=== PATIENT | female | born 1945 | race Caucasian/White ===

== ENCOUNTER → 2016-11-14 | Outpatient (CLI) | payer MEDICARE, OTHER ==
[~2016-11-14] MED LIST: ASPI325T6 PO; ASPIRIN 32325 MG/TAB PO; BETIMOL 2.5 ML2.5 M1 OP; CALCIUM + D 6001 TA1 PO; CALTRATE 600 +1 TAB PO; CELEBREX 200MG200 MG PO; COLACE 100100 MG/CAP PO; FLOVENT DI100 MCG/Ac IH; FOLIC ACID 40400 MCG PO; FUROSEMIDE40 MG PO; GLUCOPHAGE500 MG/TAB PO; IRON325 M1 PO; LABETALOL200 MG PO; LASIX 40MG TABL40 MG PO; LEVAQUIN 5500 MG/TA1 PO; LEVOTHYROXINE0.2 MG PO; LOVENOX 4040 MG/0.4 SQ; MOBIC 7.5MG7.5 MG PO; NEXIUM 40MG40 MG PEG; NORCO 325 MG-51 TAB PO; NORCO 325 MG-7.1 TAB PO; NORMODYNE200 MG PO; OXECTA5 MG PO; PREDNISONE 5MG5 MG PO; ROXICODONE 55 MG/TAB PO; SENOKOT S 50 MG1 TAB PO; SYNTHROID0.2 MG/TAB PO; TIMOPTIC 0.25%-10 OP; TYLENOL 500MG500 MG PO; ULTRAM 50MG TAB50 MG PO; VITAMIN C500 MG PO; VYTORIN 10 MG-41 TAB PO; ZOFRAN 4MG T4 MG/TAB PO
== END ==
LOC: MC.RAD 15:00
DX: Z12.31 Encounter for screening mammogram for malignant neoplasm of breast (principal); N63 Unspecified lump in breast; R92.1 Mammographic calcification found on diagnostic imaging of breast

== ENCOUNTER → 2017-12-29 | Outpatient (CLI) | payer MEDICARE, OTHER | LOC: MC.RAD 09:57 | DX: Z12.31 Encounter for screening mammogram for malignant neoplasm of breast (principal) ==

== ENCOUNTER 2018-02-15 12:15 | Emergency (ER) | payer MEDICARE, OTHER ==
[~2018-02-15] VITALS: Ht 165.1 cm; Wt 100.0 kg
[2018-02-15 12:21] VITALS: TEMP 96.9
[2018-02-15] MEDS ORDERED: VOLTAREN 50MG T50 MG PO (12:44)
[2018-02-15] MEDS ORDERED: VESICARE10 MG PO (12:46)
[2018-02-15] MEDS ORDERED: PRILOSEC 20MG20 MG PO (12:47)
[2018-02-15 13:27] LABS: BASO % 0.4 % (0.0-2.0); EOS # 0.2 (0.0-0.7); EOS % 2.2 % (0-4.0); GRAN # 6.8 (1.4-6.5); GRAN % 70.2 % (42.2-75.2); HEMATOCRIT 38.2 % (37.0-47.0); HEMOGLOBIN 12.9 g/dl (12.5-16.0); LYMPH # 1.9 (1.2-3.4); LYMPH % 19.5 % (20.0-51.0); MEAN CELL VOLUME 92 fl (80.0-100.0); MEAN CORPUSCULAR HEMOGLOBIN 31 pg (27.0-31.0); MEAN CORPUSCULAR HGB CONC 34 g/dl (33.0-37.0); MEAN PLATELET VOLUME 9.5 fl (7.4-10.4); MONO # 0.7 (0.1-0.6); MONO % 7.2 % (1.7-9.3); PLATELET COUNT 266 K/mm3 (130-400); PROTHROMBIN TIME 11.6 SECONDS (9.7-12.8); RED BLOOD COUNT 4.16 M/mm3 (4.10-5.30); REDCELL DISTRIBUTION WIDTH-CV 13.2 % (11.5-14.5)
[2018-02-15 13:30] LABS: PARTIAL THROMBOPLASTIN TIME 33.8 SECONDS (26.0-37.0)
[2018-02-15 13:34] LABS: ALBUMIN 4.3 gm/dL (3.5-5.0); BILIRUBIN,TOTAL 0.5 mg/dL (0.0-1.0); C-REACTIVE PROTEIN 1.2 mg/dL (0.0-0.9); CALCIUM 9.3 mg/dL (8.4-10.2); CREATININE, serum 0.62 mg/dL (0.52-1.25); MAGNESIUM 1.9 mg/dL (1.6-2.3); PHOSPHOROUS 4.9 mg/dL (2.5-4.5); POTASSIUM 3.9 mmol/L (3.4-5.0); TOTAL PROTEIN 7.8 gm/dL (6.4-8.2)
[2018-02-15 13:48] LABS: ERYTHROCYTE SEDIMENTATION RATE 19 mm/hr (0-30)
[2018-02-15 18:06] VITALS: BP 196/95; PULSE 74
== END 2018-02-15 18:06 | disposition home or self-care (01) ==
LOC: COL.ER 12:15
PROVIDERS: Emergency Medicine
DX: H49.01 Third [oculomotor] nerve palsy, right eye (principal); I10 Essential (primary) hypertension; E78.5 Hyperlipidemia, unspecified; E11.9 Type 2 diabetes mellitus without complications; I48.91 Unspecified atrial fibrillation; Z79.84 Long term (current) use of oral hypoglycemic drugs
CPT/HCPCS: A9585

== ENCOUNTER → 2019-01-14 | Outpatient (CLI) | payer MEDICARE, OTHER ==
[~2019-01-14] MED LIST changes: +PRILOSEC 20MG20 MG PO; +VESICARE10 MG PO; +VOLTAREN 50MG T50 MG PO
== END ==
LOC: MC.RAD 09:22
DX: Z12.31 Encounter for screening mammogram for malignant neoplasm of breast (principal)

== ENCOUNTER 2019-03-05 11:00 | Inpatient (IN) | payer MEDICARE, OTHER ==
[~2019-03-05] VITALS: Ht 165.1 cm; Wt 84.6 kg
[2019-04-22] VITALS (11 sets, daily range): BP systolic 122–185; BP diastolic 52–68; PULSE 54–84; TEMP 97.9–99.2
[2019-04-22] MEDS ORDERED: PRINIVIL10 MG PO (07:51)
[2019-04-22] MEDS ORDERED: TUMS ULTRA ST1000 MG PO (07:52)
[2019-04-22] MEDS ORDERED: MYRBETR50MG PO (07:54)
--- NOTE | 2019-04-22 13:00 | NUR ---
PATIENT BACK IN ROOM 328 POST OP LTK. LLE DRESSING IS CD&I WITH AQUACEL. TEDS & SCD'S TO BLE. POSITIVE PEDAL PULSES TO BLE. HUMPHREY TO DD WITH SMALL AMOUNTS OF CLEAR YELLOW URINE NOTED. IV FLUIDS INFUSING VIA PUMP. NO C/O N/V. LIQUIDS AT BEDSIDE. HEAD TO TOE ASSESSMENT WNL. ORIENTED TO ROOM. CALL LIGHT IN REACH. FAMILY AT BEDSIDE.
--- NOTE | 2019-04-22 15:02 | NUR ---
SW met with the patient to discuss discharge plan. The patient lives in [place] with her son (Saud), sjzdbhep-[id number]-lku (Haydee), and grandson. She reports independence with ADLs and has a cane and walker. The patient's PCP is Dr. Mo Bhat and she receives her medications at [facility]. She reports no difficulties obtaining her meds. The patient does not have advanced directives in EMR, but she states that she is in the process of completing them. She states she is designating her son, Saud. Depending on how she does with therapy, the patient plans to return home with her family upon discharge. PT/OT has been ordered. SW to continue to follow.
--- NOTE | 2019-04-22 20:00 | NUR ---
Report receive. 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 Assessment complete. VS stable. C/O pain to left knee rating 03/18. Medicated with Ultram 100mg per dr order. Denies N/V. Left lower extremity elevated-fresh ice pack applied. Has been up to ambulate approx 100 feet. Dressing-bulky white with gaby. No drainage noted. Denies needs. Call light within reach. Will monitor. .
--- NOTE | 2019-04-22 20:00 | NUR ---
Report received. Assumed care for nighty shift. Assessment complete. VS stable. Dilaudid BEAN VINER infusing without issues. Left upper arm PICC line-no redness or swelling noted. Dressing to right hip u4-[id number] dime size drainage noted. Ice pack on. Mom at bedside. Denies needs at this time. Call light within reach. Encouraged to call for questions or concerns. Will monitor
[2019-04-23] VITALS (7 sets, daily range): BP systolic 148–173; BP diastolic 50–68; PULSE 81–92; TEMP 97.7–99
--- NOTE | 2019-04-23 | NUR ---
C/O pain to left knee rating 9/10. Roxicodone given per dr order. Fresh ice pack applied. Denies N/V. WIll monitor.
--- NOTE | 2019-04-23 05:06 | NUR ---
Noted to have elevated blood pressure during vitals verification. Rechecked at this time 152/78. C/O pain rated 7/10 to left lower extremity. Roxicodone given per dr moore. Requesting AM meds now as well. Denies N/V. Has tolerated PO. [place]o cath with clear yellow urine. Denies any other concerns. Fresh ice pack applied. WIll monitor.
--- NOTE | 2019-04-23 07:25 | NUR ---
report from Margarita PERRIN.
--- NOTE | 2019-04-23 09:39 | NUR ---
PT OUT TO [facility] WITH THERAPY. RETURNED TO RECLINER AFTER WALKING MORE THAN 50 FT. AM MEDS GIVEN ORDERED. VSS, PT TO DISCHARGE HOME AFTER MEETING CRITERIA FOR DISCHARGE.
--- NOTE | 2019-04-23 10:56 | NUR ---
ORA met with the patient to discuss physical therapies recommendation of outpatient PT. The patient reports that she is in agreeance to this recommendation and would like to be set up at the [facility] in [place]. ORA contacted Nadia at [facility] and scheduled an appointment for PT on Monday, 04/26, at 1300. ORA informed the patient and patient's nurse of the appointment. ORA will need to fax the patient's discharge orders to [facility] at [phone]. ORA to continue to follow.
--- NOTE | 2019-04-23 11:39 | NUR ---
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 No needs right now.
--- NOTE | 2019-04-23 17:40 | NUR ---
DRESSING CHANGE COMPLETED TEDS ON BILATERALLY, INCISION CDI WITH WELL APPROXIMATED EDGES. AQUACEL OVER STERI STRIPS. PT TOLERATED WELL. PT AMBULATING WITH SBA X1 TO BATHROOM VOIDING AND THEN RETURN TO BED.
--- NOTE | 2019-04-23 19:04 | NUR ---
Report to Jessica PERRIN.
--- NOTE | 2019-04-24 01:28 | NUR ---
Patient requested Melatonin 10mg this evening. SOFI Schneider notified and ordered Melatonin 10mg. Pharmacy substituted to 9mg. Given and effective. Patient refused walk several times this evening. Requested to take off SCDs, but this nurse did education and encourage patient to keep them on. Currently on. Patient's pain is well controlled. Oxycodone given for breakthrough pain about 0000. Will continue to monitor.
[2019-04-24 03:52] VITALS: BP 156/64; PULSE 88; TEMP 98.2
--- NOTE | 2019-04-24 06:35 | NUR ---
awake resting in bed, bedside shift report received from MARYCHUY Malone
[2019-04-24 07:12] LABS: HEMOGLOBIN 10.8 g/dl (12.5-16.0)
[2019-04-24 07:21] LABS: HEMATOCRIT 31.6 % (37.0-47.0)
[2019-04-24 07:25] VITALS: BP 153/54; PULSE 89; TEMP 97.7
--- NOTE | 2019-04-24 07:25 | NUR ---
assisted up to bathroom and voids qs, then out and into recliner, full assessment completed, see interventions for further info, c/o pain 04/17 and medicated with tramadol 100mg,
--- NOTE | 2019-04-24 08:15 | NUR ---
occupational therapy in to assist her with taking a shower
--- NOTE | 2019-04-24 09:05 | NUR ---
ambulating in [place] with physical therapy
--- NOTE | 2019-04-24 10:30 | NUR ---
remains up in chair, asking about going to be back bed, encouraged her to stay up for 30 more minutes, verbalizes understanding
--- NOTE | 2019-04-24 11:00 | NUR ---
COUNTRY DIRECTOR offered to assist her back to bed, she declined and states will wait until after lunch
[2019-04-24 12:00] VITALS: BP 145/51; PULSE 81; TEMP 98.2
--- NOTE | 2019-04-24 13:45 | NUR ---
resting back in bed after therapy, c/o pain 04/17 and medicated with tramadol 100mg po
--- NOTE | 2019-04-24 15:15 | NUR ---
resting in bed, has talked with son and notified social services manager she would like to go to a skilled level facility on discharge
--- NOTE | 2019-04-24 16:01 | NUR ---
ORA met with the patient to review discharge plan. The patient reports that she now does not feel like she will be able to return home with her son and flhtokuc-[id number]. She states that her [id number]-[id number] just suffered a heat stroke and that her son is caring for her and still working. She states she would be interested in post-acute rehab. ORA presented and explained the patient choice form. The patient preferred a facility in [place]. Patient choice form signed by the patient and she was provided a copy. ORA also contacted and updated the patient's son, Saud. Saud reports that he is in agreeance to the plan. ORA contacted and faxed a referral to all three facilities. SW awaiting their screening.
--- NOTE | 2019-04-24 17:15 | NUR ---
sitting up on side of bed eating supper, denies needs
[2019-04-24 17:20] VITALS: BP 154/53; PULSE 84; TEMP 98.5
--- NOTE | 2019-04-24 18:40 | NUR ---
c/o pain 04/17 and medicated with roxicodone 5mg
--- NOTE | 2019-04-24 19:00 | NUR ---
bedside shift report given to MARYCHUY Malone
[2019-04-24 20:41] VITALS: BP 150/50; PULSE 90; TEMP 98.8
--- NOTE | 2019-04-24 22:57 | NUR ---
Patient stated at about 1999 that she couldn't stay up and longer and she was going to go to bed. This nurse went to see patient and stated she needed to walk before she went to sleep. Patient voiced that she did not want to do th is and she felt like "I just don't have the energy.". This nurse educated patient that its important to ambulate to assist with healing. Patient accepted this and ambulated 100 feet with this nurse, but stated numerous times she was not happy about it. Patient then went to bed. Denies any other needs. Will continue to monitor.
[2019-04-24 23:41] VITALS: BP 143/62; PULSE 88; TEMP 98.4
[2019-04-25 02:52] VITALS: BP 161/71; PULSE 88; TEMP 98.5
[2019-04-25 04:19] VITALS: BP 169/67; PULSE 83; TEMP 98.2
--- NOTE | 2019-04-25 05:53 | NUR ---
Patient ambulates with SBA to bathroom throughout the night. Pain medication administered at about 0500. Effective. Pain well managed. Slept well throughout the night.
[2019-04-25] MEDS ORDERED: ASPI325T6 PO (07:17)
[2019-04-25] MEDS ORDERED: ROXICODONE 55 MG/TAB PO (07:18)
[2019-04-25] MEDS ORDERED: SENNA-S 50 MG-81 TAB PO (07:19)
[2019-04-25] MEDS ORDERED: ULTRAM 50MG TAB50 MG PO (07:19)
--- NOTE | 2019-04-25 07:24 | NUR ---
REPORT FROM DAVID PERRIN.
[2019-04-25 07:26] VITALS: BP 167/63; PULSE 82; TEMP 98.2
--- NOTE | 2019-04-25 08:32 | NUR ---
PT UP TO RECLINER THEN TO BR. RETURNED TO RECLINER INDEPENDENTLY. STEADY GATE, PAIN WELL CONTROLLED WITH PO MEDS. EATING AND DRINKING WITH NO N/V. PLAN ON TRANSFER TO SNF LATER TODAY.
--- NOTE | 2019-04-25 09:50 | NUR ---
[facility], [facility], and [facility] all report that they are able to accept the patient. ORA met with the patient to inform and provided her with [email or web address]'s list of nursing homes around the [facility]. The patient requested that ORA contact her son, Saud, to review the list and for his preference. ORA contacted the patient's son and he was on speaker phone in the room. The patient's son preferred [facility] and the patient chose [facility]. ORA updated [facility] and [facility]. ORA to continue to follow.
--- NOTE | 2019-04-25 10:34 | NUR ---
The patient is to discharge today, 04/25, to [facility] for a skilled stay. Transportation was set for 1130, via [facility]. ORA informed the patient, patient's nurse, and the patient's son via phone. They were all in agreeance. ORA also presented and explained the IM form to the patient. The patient verbalized understanding, signed, and she was provided a copy. No additional needs at this time.
[2019-04-25 11:22] VITALS: BP 167/63; PULSE 82; TEMP 98.2
--- NOTE | 2019-04-25 11:49 | NUR ---
REPORT TO SHAHLA [facility]Y [facility] AT [facility]
== END 2019-04-25 11:50 | DRG 470 ==
LOC: JCC 04-22 06:39
PROVIDERS: Physician Assistant; ADMIT Orthopaedic Surgery
PROC: 0SRD0J9 Replacement of Left Knee Joint with Synthetic Substitute, Cemented, Open Approach (ICD-10-PCS; principal; 2019-04-22 09:30)
DX: M17.12 Unilateral primary osteoarthritis, left knee (principal); E87.5 Hyperkalemia; J45.909 Unspecified asthma, uncomplicated; M25.762 Osteophyte, left knee; I10 Essential (primary) hypertension; G47.33 Obstructive sleep apnea (adult) (pediatric); E11.9 Type 2 diabetes mellitus without complications; E03.9 Hypothyroidism, unspecified; M35.3 Polymyalgia rheumatica; Z96.641 Presence of right artificial hip joint; Z87.891 Personal history of nicotine dependence; Z88.5 Allergy status to narcotic agent
CPT/HCPCS: A4314; A9284; C1776; J0690; J2250; J2405; J2704; J3010; J7030

== ENCOUNTER → 2019-06-14 | Outpatient (CLI) | payer MEDICARE, OTHER ==
[~2019-06-14] MED LIST changes: +MYRBETR50MG PO; +PRINIVIL10 MG PO; +SENNA-S 50 MG-81 TAB PO; +TUMS ULTRA ST1000 MG PO
== END ==
LOC: COL.VAS 13:08
DX: G45.3 Amaurosis fugax (principal); I25.10 Atherosclerotic heart disease of native coronary artery without angina pectoris

== ENCOUNTER → 2020-03-24 | Outpatient (CLI) | payer MEDICARE, OTHER | LOC: COL.VAS 13:36 | DX: R06.02 Shortness of breath (principal) ==

== ENCOUNTER → 2020-03-27 | Outpatient (CLI) | payer MEDICARE, OTHER | LOC: MC.RAD 10:00 | DX: Z12.31 Encounter for screening mammogram for malignant neoplasm of breast (principal) ==

== ENCOUNTER → 2021-03-29 | Outpatient (CLI) | payer MEDICARE, OTHER | LOC: MC.RAD 10:21 | DX: Z12.31 Encounter for screening mammogram for malignant neoplasm of breast (principal) ==

== ENCOUNTER → 2021-05-12 | Outpatient (CLI) | payer MEDICARE, OTHER | LOC: COL.RAD 13:33 | DX: Z12.2 Encounter for screening for malignant neoplasm of respiratory organs (principal); Z87.891 Personal history of nicotine dependence ==

== ENCOUNTER → 2022-03-30 | Outpatient (CLI) | payer MEDICARE, OTHER | LOC: MHCPAIN 12:28 | DX: M47.816 Spondylosis without myelopathy or radiculopathy, lumbar region (principal); M53.3 Sacrococcygeal disorders, not elsewhere classified; M54.50 Low back pain, unspecified; E11.9 Type 2 diabetes mellitus without complications | CPT/HCPCS: G0463; J1040; Q9967 ==

== ENCOUNTER → 2022-03-31 | Outpatient (CLI) | payer MEDICARE, OTHER | LOC: MHCPAIN 11:55 | DX: M47.817 Spondylosis without myelopathy or radiculopathy, lumbosacral region (principal); M53.3 Sacrococcygeal disorders, not elsewhere classified | CPT/HCPCS: G0260 ==

== ENCOUNTER → 2022-04-20 | Outpatient (CLI) | payer MEDICARE, OTHER | LOC: MHCPAIN 12:36 | DX: M47.897 Other spondylosis, lumbosacral region (principal); M53.3 Sacrococcygeal disorders, not elsewhere classified; M54.50 Low back pain, unspecified | CPT/HCPCS: G0463 ==

== ENCOUNTER → 2022-05-05 | Outpatient (CLI) | payer MEDICARE, OTHER | LOC: MHCPAIN 09:57 | DX: M47.817 Spondylosis without myelopathy or radiculopathy, lumbosacral region (principal); M54.50 Low back pain, unspecified ==

== ENCOUNTER → 2022-05-10 | Outpatient (CLI) | payer MEDICARE, OTHER | LOC: MHCPAIN 09:16 | DX: M47.896 Other spondylosis, lumbar region (principal); M54.16 Radiculopathy, lumbar region; M53.3 Sacrococcygeal disorders, not elsewhere classified | CPT/HCPCS: G0463 ==

== ENCOUNTER → 2022-05-23 | Outpatient (CLI) | payer MEDICARE, OTHER | LOC: MHCPAIN 13:08 | DX: M47.817 Spondylosis without myelopathy or radiculopathy, lumbosacral region (principal); M54.16 Radiculopathy, lumbar region; M53.3 Sacrococcygeal disorders, not elsewhere classified | CPT/HCPCS: J1100; Q9967 ==

== ENCOUNTER → 2022-06-20 | Outpatient (CLI) | payer MEDICARE, OTHER | LOC: MHCPAIN 10:14 | DX: M47.816 Spondylosis without myelopathy or radiculopathy, lumbar region (principal); M54.59 Other low back pain; M53.3 Sacrococcygeal disorders, not elsewhere classified; I10 Essential (primary) hypertension; E11.9 Type 2 diabetes mellitus without complications | CPT/HCPCS: G0463 ==

== ENCOUNTER → 2022-08-16 | Outpatient (CLI) | payer MEDICARE, OTHER | LOC: MHCPAIN 10:44 | DX: M47.816 Spondylosis without myelopathy or radiculopathy, lumbar region (principal); M54.50 Low back pain, unspecified; M53.3 Sacrococcygeal disorders, not elsewhere classified | CPT/HCPCS: G0463 ==